=== PATIENT | female | born 1980 | race Two or more races ===

== ENCOUNTER 2024-08-22 19:21 | Emergency (ER) | payer MEDICAID, SELFPAY ==
[2024-08-22 21:09] VITALS: BP 128/74; PULSE 78; RESP 20; TEMP 36.8; O2SAT 98
--- NOTE | 2024-08-22 21:19 | XR_ITS ---
Examination: Complete OB ultrasound, less than 14 weeks, transabdominal Date and time of exam: August 22, 2024 2128 hours INDICATIONS: Onset of vaginal bleeding beginning 5 days ago Technique: Obstetrical ultrasound images less than 14 weeks performed via transabdominal imaging Findings: Uterus 9.0 cm with pole 0.34 cm corresponding to 6 week 0 day gestational age No cardiac motion Right ovary 3.4 cm arterial flow Left ovary 2.8 cm arterial flow IMPRESSION: Intrauterine gestation corresponding to 6 week 0 day gestational age No cardiac activity Recommend transvaginal pelvic sonography follow-up
--- NOTE | 2024-08-22 21:20 | PD.EDVAGBL ---
ED OB Contraction Preg RMI/HPI General Chief complaint: Vaginal Bleeding Stated complaint: VAGINAL BLEEDING Time Seen by Provider: 08/22/24 19:25 Source: patient Arrival date/time: 08/22/24 19:21 Mode of arrival: ambulatory Limitations: no limitations RME / HPI RME / HPI Narrative: 44yof approximately 8 weeks gestation presents to ED for 5-day history of vaginal bleeding. Patient reports light spotting the past 4 days with heavier bleeding today. Reports mild pelvic cramping. No fever, nausea/vomiting, dysuria or back pain reported. 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 LMP 06/13/24 Related Data Allergies Allergy/AdvReac Type Severity Reaction Status Date / Time No Known Allergies Allergy Verified 08/22/24 19:22 Review of Systems Review of Systems Systems Reviewed: All systems reviewed, normal except as documented Constitutional Constitutional: Denies chills and Denies fever(s) Gastrointestinal Gastrointestinal: Denies nausea and Denies vomiting Genitourinary Genitourinary: Reports abnormal vaginal bleeding, Denies dysuria and Reports pelvic pain Musculoskeletal Musculoskeletal: Denies back pain Past Medical History Past Medical History ENDOCRINE: Positive Diabetes Mellitus Type 2 Surgical History OTHER SURGICAL HX: denies pshx Social History SMOKING STATUS: Never smoker SUBSTANCE USE: does not use ALCOHOL: Never ED Exam General Limitations: Present no limitations General appearance: Present alert and in no apparent distress Head Head exam: Present atraumatic and normocephalic Eye Eye exam: Present normal appearance, PERRL and EOMI ENT ENT exam: Present normal exam and mucous membranes moist Neck Neck exam: Present normal inspection and full ROM Chest Chest inspection: Present normal inspection and symmetric chest wall rise Respiratory Respiratory exam: Present normal lung sounds bilaterally; Absent respiratory distress Cardiovascular Cardiovascular exam: Present regular rate and normal rhythm Abdominal Exam Abdominal exam: Present soft; Absent distention, tenderness, guarding or rebound Extremities Exam Extremities exam: Present normal inspection and full ROM Neurological Exam Neurological exam: Present alert and oriented X3 Psychiatric Psychiatric exam: Present normal affect and normal mood Skin Skin exam: Present warm, dry, intact and normal color Course Quality Measures none Orders Category Date Time Status US OB <= 14 weeks fetus Stat Exams 08/22/24 21:19 Completed Beta HCG,Quantitative Stat Lab 08/22/24 22:29 Completed CBC Stat Lab 08/22/24 22:29 Completed CMP [Comprehensive Metabolic Panel] Stat Lab 08/22/24 22:29 Completed UA [Urinalysis] Stat Lab 08/22/24 21:59 Completed Vital Signs Vital signs: Vital Signs Temperature 98.2 F 08/22/24 21:09 Pulse Rate 78 08/22/24 21:09 Respiratory Rate 20 08/22/24 21:09 Blood Pressure 128/74 08/22/24 21:09 Pulse Oximetry (%) 98 08/22/24 21:09 Oxygen Delivery Method Room Air 08/22/24 21:09 Vaginal Bleeding MDM Narrative MDM Narrative: 44yof approximately 8 weeks gestation presents to ED for 5-day history of vaginal bleeding. Patient reports light spotting the past 4 days with heavier bleeding today. Reports mild pelvic cramping. No fever, nausea/vomiting, dysuria or back pain reported. 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 LMP 06/13/24. Patient updated on labs and imaging. Encouraged close OB follow-up for hCG recheck. Stable for discharge, RTED precautions given. Patient data External records reviewed:: [facility] previous records (admit 06/10/23 for labor and delivery) Clinical information provided by:: patient Social determinants that could affect healthcare access:: other (specify) (Acculturation difficulty) Patient has the following chronic illnesses:: Diabetes How is presenting disease/condition affected by chronic disease/condition?: uneffected by Evaluation data The following diagnostics were reviewed and interpreted by me:: lab results and radiology exam(s) Lab and/or radiology exams considered but not ordered:: none Interpretation Summary: Ob ultrasound: IUP per my read, no cardiac activity hgb 12.7 hcg quant UA negative for leuks Medications / Prescriptions Medications or Prescriptions considered but not ordered:: no antibiotics recommended at this time Medication administrations:: none Consultations Consultation(s) initiated? (list below): No Diagnosis Vaginal Bleeding Differential Diagnosis: missed , threatened , incomplete and vaginal bleeding Most likely diagnosis given after review of the tests above:: threatened miscarriage Admission Indicated Admission indicated?: not indicated Admission Request Was there a request for admission?: No Disposition Plan Disposition Plan: Discharge Discharge Attestation Discharge Attestation: The patient and all family members were given an opportunity to ask questions and understood the discharge instructions. Discharge instructions specifically effects, indications for sooner follow up or return to the emergency department, and the expected course of current diagnosis. Patient condition: Stable Discharge Plan Plan Patient Disposition: HOME (Self Care) Patient condition on transfer: Stable Prescriptions/Referrals Referrals: No Primary/Family,Physician [Primary Care Provider] - In 1 week Problem List Clinical Impression: Miscarriage, threatened, early Patient/Caregiver Discharge Instructions Education Materials: ED Possible Miscarriage ... Additional Instructions: Your ultrasound showed a gestational sac but no heartbeat. This could be due to early or miscarriage. Please follow-up with your OB within the following week to have your hormone level (HCG) rechecked. Your hCG level today was 5771. Print Language: Danish Stand Alone Forms: Tish Award Info., Patient Portal Info Letter ANNA/MARISA Supervising Physician ANNA/MARISA Supervising Physician: Mary Ann
[2024-08-22 22:14] LABS: Collection Type, Urine Clean Catch
[2024-08-22 22:22] LABS: Bilirubin,Urine Negative (Negative); Blood,Urine 3+ (Negative); Clarity,Urine Clear (Clear/Hazy); Color,Urine Yellow (Lt Yel-Yel); Glucose, Urine 3+ (Negative); Ketones,Urine Trace (Negative); Leukocyte Esterase,Urine Negative (Negative); Nitrite,Urine Negative (Negative); Protein,Urine 1+ (Neg - Trace); RBC,Urine 3 /hpf (0-3); Squamous Epithelial Cell,Urine 7 /hpf (0-5); WBC,Urine 1 /hpf (0-5)
[2024-08-22 22:32] LABS: Specific Gravity,Urine > 1.030 (1.001-1.035)
[2024-08-22 22:44] LABS: Basophils % (Auto) 0 % (0-2.5); Eosinophils # (Auto) 0.3 Thou/mm3 (0.0-0.5); Eosinophils % (Auto) 2 % (0-10); Hematocrit 36.9 % (36.0-46.0); Hemoglobin 12.7 g/dL (12.0-16.0); Immature Granulocytes % (Auto) 1 % (0-0); Immature Granulocytes Auto 0.06 Thou/mm3 (0.00-0.00); Lymphocytes # (Auto) 3.7 Thou/mm3 (1.0-4.8); Lymphocytes % (Auto) 30 % (10-50); Mean Corpuscular HGB Conc 34.4 g/dl (31.0-37.0); Mean Corpuscular Hemoglobin 30.3 pg (25.0-35.0); Mean Corpuscular Volume 88 fL (80-100); Monocytes # (Auto) 1.2 Thou/mm3 (0.0-0.8); Monocytes % (Auto) 9 % (0-12); Neutrophils # (Auto) 7.3 Thou/mm3 (1.8-7.7); Neutrophils % (Auto) 58 % (37-80); Nucleated Red Blood Cell % 0 /100 WBC (0); Platelet Count 325 Thou/mm3 (140-440); Red Blood Count 4.19 Miln/mm3 (4.00-5.20); White Blood Count 12.4 Thou/mm3 (3.6-11.0)
[2024-08-22 23:25] LABS: Alanine Aminotransferase 11 U/L (10-49); Albumin, Serum 4.3 gm/dL (3.5-5.0); Albumin/Globulin Ratio 1.7 (1.2-2.2); Alkaline Phosphatase 84 U/L (46-116); Anion Gap 10 (7-16); Aspartate Amino Transferase 17 U/L (0-34); BUN/Creatinine Ratio 34 Ratio (12-20); Beta HCG,Quantitative 5771 mIU/mL (<5.0); Bilirubin,Total 0.3 mg/dL (0.3-1.2); Blood Urea Nitrogen 17 mg/dL (9-23); Calcium 10.1 mg/dL (8.3-10.6); Calcium (Corrected) 10.1 mg/dL (8.5-10.1); Carbon Dioxide 26.9 mMol/L (20.0-31.0); Chloride 103 mMol/L (98-107); Creatinine (Component) 0.5 mg/dL (0.6-1.3); Globulin 2.6 gm/dL (2.3-3.5); Glucose 88 mg/dL (74-106); Osmolality,Calculated 279 (275-295); Potassium 3.7 mMol/L (3.4-5.1); Sodium 140 mMol/L (136-145); Total Protein 6.9 gm/dL (5.7-8.2); eGFR > 60 See Note
[2024-08-22 23:49] VITALS: RESP 18
== END 2024-08-22 23:49 | disposition home or self-care (01) ==
PROVIDERS: Physician Assistant; Emergency Provider Emergency Medicine
DX: O20.0 Threatened abortion (principal); Z3A.08 8 weeks gestation of pregnancy
CPT/HCPCS: 36415; 76801; 80053; 81001; 84702; 85025; 99284